=== PATIENT | male | born 1935 | race Caucasian/White ===

== ENCOUNTER → 2016-12-21 | Outpatient (CLI) | payer BC ==
[~2016-12-21] MED LIST: ASCO500T16 PO; ASPI81TA28 PO; MEMA1CAP7 PO; MULT-513 PO; SIMV20TA2 PO
[2016-12-22 08:54] LABS: URINE APPEARANCE CLOUDY (CLEAR); URINE BILIRUBIN NEG (NEG); URINE COLOR YELLOW; URINE EPITHELIAL CELL AUTO 20-30 /lpf (0-5); URINE NITRITE NEG (NEG); UROBILINOGEN NEG (NEG)
[2016-12-22 08:56] LABS: MANUAL MICROSCOPIC REQUIRED? NO; REVIEW REQ? YES
--- NOTE | 2016-12-25 05:40 | CODING QUERY NO DIAGNOSIS ---
TREATMENT RENDERED WITHOUT A DIAGNOSIS [employer], To promote full compliance with coding requirements relating to patient care, physician participation is requested in all cases of dock associate uncertainty. Please assist us with providing a diagnosis/symptom for the test(s) below: A diagnosis/symptom was not documented on your Order. A valid diagnosis/symptom is required to bill all insurances. Please remember that we are unable to code a diagnosis of rule out, probable, possible, questionable, or suspected. Tests that require a diagnosis: * URINE CULTURE DIAGNOSIS: * URINALYSIS WITH MICROSCOPY DIAGNOSIS: DATE OF SERVICE: 12/21/16 Provider Signature: Date: Thank you Dane Hodges [facility] Information Management Once completed, please kindly fax back to [phone] For questions please call [phone]
== END | disposition home or self-care (01) ==
LOC: C.LABSPEC 18:30
PROVIDERS: ATTEND Nurse Practitioner
DX: R50.9 Fever, unspecified (principal); R41.82 Altered mental status, unspecified; R63.8 Other symptoms and signs concerning food and fluid intake; R53.83 Other fatigue; F02.80 Dementia in other diseases classified elsewhere, unspecified severity, without behavioral disturbance, psychotic disturbance, mood disturbance, and anxiety; R47.01 Aphasia

== ENCOUNTER → 2017-08-19 | Outpatient (CLI) | payer BC ==
--- NOTE | 2017-08-19 17:16 | DIAGNOSTIC IMAGING REPORT ---
L-SPINE MIN 4 VIEWS ROUTINE CLINICAL HISTORY: M48.061 Lumbar canal [id number] Unsteady [id number] Urinary incontinence COMPARISON STUDY: MRI dated 05/14/2012 FINDINGS: There are bilateral total hip arthroplasties. Renal calcifications are likely vascular. There are moderately advanced multilevel degenerative changes present within the lumbar spine and lower thoracic spine. There is marked disc space narrowing at the L2-3 and L4-5 levels. There is a minimal grade 1 spondylolisthesis of L4 on L5. There are no acute fractures. IMPRESSION: Moderately advanced multilevel degenerative change. No acute fractures are visualized. Electronically signed by: Robert Longo M.D. 08/19/2017 5:15 PM Dictated Date/Time: 08/19/2017 5:13 PM
[2017-08-19 17:30] LABS: HEMATOCRIT 44.1 % (42-52); HEMOGLOBIN 15.2 g/dL (14.0-18.0); MEAN CELL VOLUME 90.9 fL (80-100); MEAN CORPUSCULAR HEMOGLOBIN 31.3 pg (25-34); MEAN CORPUSCULAR HGB CONC 34.5 g/dl (32-36); PLATELET COUNT 261 K/uL (130-400); RED CELL DISTRIBUTION WIDTH CV 13.4 % (11.5-14.5); RED CELL DISTRIBUTION WIDTH SD 44.1 fL (36.4-46.3); WHITE BLOOD COUNT 10.03 K/uL (4.8-10.8)
[2017-08-19 18:01] LABS: ALBUMIN 3.4 gm/dl (3.4-5.0); ALT/SGPT 50 U/L (12-78); AST/SGOT 37 U/L (15-37); BLOOD UREA NITROGEN 15 mg/dl (7-18); CALCIUM 8.9 mg/dl (8.5-10.1); CARBON DIOXIDE 26 mmol/L (21-32); CREATININE 1.01 mg/dl (0.60-1.40); GLUCOSE 97 mg/dl (70-99); POTASSIUM 4.4 mmol/L (3.5-5.1); SODIUM 138 mmol/L (136-145)
[2017-08-19 18:11] LABS: ALKALINE PHOSPHATASE 117 U/L (45-117); TOTAL PROTEIN 7.4 gm/dl (6.4-8.2)
== END | disposition home or self-care (01) ==
LOC: C.LAB1850 16:39
PROVIDERS: ATTEND Internal Medicine
DX: R41.82 Altered mental status, unspecified (principal); R32 Unspecified urinary incontinence; M48.061 Spinal stenosis, lumbar region without neurogenic claudication; R26.81 Unsteadiness on feet

== ENCOUNTER 2017-09-13 13:55 | Emergency (ER) | payer BC ==
[~2017-09-13] VITALS: Ht 177.8 cm; Wt 72.1 kg
[2017-09-13 14:05] VITALS: BP 99/66; PULSE 85; TEMP 37; O2SAT 97; Ht 177.8 cm; Wt 72.1 kg
== END 2017-09-13 15:29 | disposition left against medical advice (07) ==
LOC: C.EDB 13:59

== ENCOUNTER 2017-09-16 09:48 | Emergency (ER) | payer BC ==
[2017-09-16 09:58] VITALS: TEMP 36.4
[2017-09-16 10:27] VITALS: O2SAT 97
[2017-09-16] MEDS ORDERED: SODIUM CHLORIDE 0.9% 1000ML 500 ML IV STA (10:34)
[2017-09-16] MEDS ORDERED: SERT50TA PO (10:36)
--- NOTE | 2017-09-16 11:02 | DIAGNOSTIC IMAGING REPORT ---
CHEST ONE VIEW PORTABLE CLINICAL HISTORY: Altered mental status. Weakness. COMPARISON STUDY: September 2014 FINDINGS: The heart is at the upper limits of normal in size. There is mild basilar interstitial thickening of finding which is accentuated by suboptimal inspiration. There is no lobar consolidation. There are no pleural effusions. There are postsurgical changes in the cervical spine.[ IMPRESSION: Mild basilar interstitial thickening. No evidence of lobar consolidation Electronically signed by: Robert Longo M.D. 09/16/2017 11:01 AM Dictated Date/Time: 09/16/2017 11:00 AM
[2017-09-16 11:20] LABS: BASO % 0.1 %; BASO ABS # 0.01 K/uL (0-0.2); EOS % 1.7 %; EOS ABS # 0.13 K/uL (0-0.5); HEMATOCRIT 45.6 % (42-52); HEMOGLOBIN 15.6 g/dL (14.0-18.0); IG# 0.03 K/uL (0.00-0.02); LYMPH % 23.8 %; LYMPH ABS # 1.85 K/uL (1.2-3.4); MEAN CELL VOLUME 90.7 fL (80-100); MEAN CORPUSCULAR HGB CONC 34.2 g/dl (32-36); MEAN PLATELET VOLUME 9.8 fL (7.4-10.4); MONO % 7.8 %; MONO ABS # 0.61 K/uL (0.11-0.59); NEUT % 66.2 %; NEUT ABS # 5.15 K/uL (1.4-6.5); PLATELET COUNT 221 K/uL (130-400); RED CELL DISTRIBUTION WIDTH CV 13.5 % (11.5-14.5); RED CELL DISTRIBUTION WIDTH SD 44.4 fL (36.4-46.3); WHITE BLOOD COUNT 7.78 K/uL (4.8-10.8)
[2017-09-16 11:24] LABS: ALBUMIN 3.8 gm/dl (3.4-5.0); ALT/SGPT 51 U/L (12-78); AST/SGOT 39 U/L (15-37); BLOOD UREA NITROGEN 14 mg/dl (7-18); CARBON DIOXIDE 30 mmol/L (21-32); CREATININE 0.99 mg/dl (0.60-1.40); GLUCOSE 107 mg/dl (70-99); POTASSIUM 4.2 mmol/L (3.5-5.1); SODIUM 139 mmol/L (136-145)
--- NOTE | 2017-09-16 11:31 | DIAGNOSTIC IMAGING REPORT ---
CT HEAD WITHOUT CONTRAST (CT) CLINICAL HISTORY: Altered mental status. Weakness. COMPARISON STUDY: January 22, 2013 TECHNIQUE: Axial CT of the brain is performed from the vertex to the skull base. IV contrast was not administered for this examination. A dose lowering technique was utilized adhering to the principles of ALARA. CT DOSE: 537.48 mGy.cm FINDINGS: No intra or extra-axial mass lesions are visualized. There is no CT evidence of acute cortical infarction. There is no evidence of midline shift. There is no acute hemorrhage. No calvarial fractures are visualized. There are moderate white matter hypodensities likely on a small vessel basis. There are old bilateral lacunar infarcts. There is no evidence of pathologic ventricular dilatation. There is a trace left mastoid effusion. IMPRESSION: 1. 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 No acute intracranial findings Electronically signed by: Robert Longo M.D. 09/16/2017 11:30 AM Dictated Date/Time: 09/16/2017 11:28 AM
[2017-09-16 11:35] LABS: ALKALINE PHOSPHATASE 123 U/L (45-117); TOTAL PROTEIN 7.8 gm/dl (6.4-8.2)
[2017-09-16 12:37] VITALS: BP 125/65; PULSE 102; O2SAT 95
--- NOTE | 2017-09-16 15:29 | EMERGENCY ROOM VISIT NOTE ---
History Report prepared by Ezekiel: Denzel Vyas Under the Supervision of: Dr. Remigio Wakefield M.D. First contact with patient: 10:32 Chief Complaint: ALTERED MENTAL STATUS Stated Complaint: CHANGE IN MENTAL STATE, INCONTINENCE ISSUES Nursing Triage Summary: pt. lives at [facility], [place] [facility], past couple months pt. has been declining, went to Dr. Olson office couple weeks ago, pt. needs a ct scan to compare, was here saturday and was not seen due to increase agitation, past couple months pt. has lost interest in television and reading, lack of apathy, incontinent From May til Now more rapid decline vascular dementia for past several years, asphasia History of Present Illness The patient is a 82 year old male who presents to the Emergency Room with complaints of constant altered mental status beginning a few months ago. He lives at [facility]. History obtained per son. He states that the patient was seen by his PCP a few weeks ago for overall cognitive decline. He states that the patient has had an overall lack of interest, emotion, and memory. The patient's son states that the patient has been eating normally, but will go sleep as soon as he is done eating. He states that the patient's PCP recommended the patient have a head CT. He notes that the patient was started on Zoloft three months ago. The patient's son states that the patient has become incontinent of bowel and bladder recently as well. The patient has had no reported falls. HPI limited secondary to altered mental status. Source of History: family (son) History Limited By: AMS Onset: A few months ago Quality: other (altered mental status) Timing: constant Review of Systems ROS limited secondary to dementia. Past Medical & Surgical Medical Problems: (1) Anterior cervical discectomy (2) Arthritis (3) Cataract (4) Diabetes mellitus type 2 (5) Hyperlipidemia (6) Lipoma (7) Lumbar stenosis (8) Tonsillectomy (9) Total replacement of hip Family History No pertinent family history Social History Smoking Status: Former Smoker Alcohol Use: occasionally Marital Status: Housing Status: lives with family Occupation Status: retired Current/Historical Medications Scheduled Ascorbic Acid (Ascorbic Acid), 500 MG PO DAILY Aspirin (Aspirin Ec), 81 MG PO DAILY Memantine Hcl (Namenda Xr), 28 MG PO DAILY Multivitamins/Minerals (Mvi With Minerals), 1 TAB PO DAILY Sertraline (Zoloft), 50 MG PO DAILY Simvastatin (Zocor), 20 MG PO QPM Allergies Coded Allergies: No Known Allergies (Unverified , 06/24/14) Physical Exam Vital Signs Date Time Temp Pulse Resp B/P (MAP) Pulse Ox O2 Delivery O2 Flow Rate FiO2 09/16/17 12:37 102 19 125/65 95 Room Air 09/16/17 11:48 67 14 95 09/16/17 11:31 117/62 09/16/17 11:24 68 15 126/62 98 Room Air 09/16/17 11:19 126/62 09/16/17 11:18 68 23 09/16/17 10:48 74 14 09/16/17 10:27 97 Room Air 09/16/17 10:18 69 09/16/17 10:18 68 22 98 09/16/17 10:13 146/66 09/16/17 09:58 36.4 82 20 115/66 98 Room Air Physical Exam GENERAL: Patient is in no acute distress. HEENT: No acute trauma, normocephalic atraumatic, mucous membranes moist, no nasal congestion, no scleral icterus. NECK: No stridor, no adenopathy, no meningismus, trachea is midline. LUNGS: Clear to auscultation bilaterally, no wheeze, no rhonchi, breath sounds equal. HEART: Without murmurs gallops or rubs, regular rate and rhythm. ABDOMEN: Soft, nontender, bowel sounds positive, no hernias, no peritonitis. EXTREMITIES: No cyanosis or edema, full range of motion of all the joints without pain or difficulty, no signs for acute trauma. NEUROLOGIC: Awake. Does not answer questions. Does move all extremities. SKIN: No rash, no jaundice, no diaphoresis. Medical Decision & Procedures ER Provider Diagnostic Interpretation: Radiology results as stated below per my review and radiologist interpretation: CT HEAD WITHOUT CONTRAST (CT) FINDINGS: No intra or extra-axial mass lesions are visualized. There is no CT evidence of acute cortical infarction. There is no evidence of midline shift. There is no acute hemorrhage. No calvarial fractures are visualized. There are moderate white matter hypodensities likely on a small vessel basis. There are old bilateral lacunar infarcts. There is no evidence of pathologic ventricular dilatation. There is a trace left mastoid effusion. IMPRESSION: 1. 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 No acute intracranial findings Electronically signed by: Robert Longo M.D. 09/16/2017 11:30 AM CHEST ONE VIEW PORTABLE FINDINGS: The heart is at the upper limits of normal in size. There is mild basilar interstitial thickening of finding which is accentuated by suboptimal inspiration. There is no lobar consolidation. There are no pleural effusions. There are postsurgical changes in the cervical spine.[ IMPRESSION: Mild basilar interstitial thickening. No evidence of lobar consolidation Electronically signed by: Robert Longo M.D. 09/16/2017 11:01 AM Laboratory Results 09/16/17 10:50 Red Blood Count 5.03, Mean Corpuscular Volume 90.7, Mean Corpuscular Hemoglobin 31.0, Mean Corpuscular Hemoglobin Concent 34.2, Mean Platelet Volume 9.8, Neutrophils (%) (Auto) 66.2, Lymphocytes (%) (Auto) 23.8, Monocytes (%) (Auto) 7.8, Eosinophils (%) (Auto) 1.7, Basophils (%) (Auto) 0.1, Neutrophils # (Auto) 5.15, Lymphocytes # (Auto) 1.85, Monocytes # (Auto) 0.61, Eosinophils # (Auto) 0.13, Basophils # (Auto) 0.01 09/16/17 10:50 Test 09/16/17 10:50 09/16/17 11:45 White Blood Count 7.78 K/uL (4.8-10.8) Red Blood Count 5.03 M/uL (4.7-6.1) Hemoglobin 15.6 g/dL (14.0-18.0) Hematocrit 45.6 % (42-52) Mean Corpuscular Volume 90.7 fL (80-100) Mean Corpuscular Hemoglobin 31.0 pg (25-34) Mean Corpuscular Hemoglobin Concent 34.2 g/dl (32-36) Platelet Count 221 K/uL (130-400) Mean Platelet Volume 9.8 fL (7.4-10.4) Neutrophils (%) (Auto) 66.2 % Lymphocytes (%) (Auto) 23.8 % Monocytes (%) (Auto) 7.8 % Eosinophils (%) (Auto) 1.7 % Basophils (%) (Auto) 0.1 % Neutrophils # (Auto) 5.15 K/uL (1.4-6.5) Lymphocytes # (Auto) 1.85 K/uL (1.2-3.4) Monocytes # (Auto) 0.61 K/uL (0.11-0.59) Eosinophils # (Auto) 0.13 K/uL (0-0.5) Basophils # (Auto) 0.01 K/uL (0-0.2) RDW Standard Deviation 44.4 fL (36.4-46.3) RDW Coefficient of Variation 13.5 % (11.5-14.5) Immature Granulocyte % (Auto) 0.4 % Immature Granulocyte # (Auto) 0.03 K/uL (0.00-0.02) Anion Gap 4.0 mmol/L (3-11) Estimated GFR () 82.4 Estimated GFR (Non- 71.1 BUN/Creatinine Ratio 13.8 (10-20) Calcium Level 9.0 mg/dl (8.5-10.1) Magnesium Level 2.4 mg/dl (1.8-2.4) Total Bilirubin 0.6 mg/dl (0.2-1) Aspartate Amino Transf (AST/SGOT) 39 U/L (15-37) Alanine Aminotransferase (ALT/SGPT) 51 U/L (12-78) Alkaline Phosphatase 123 U/L (45-117) Troponin I < 0.015 ng/ml (0-0.045) Total Protein 7.8 gm/dl (6.4-8.2) Albumin 3.8 gm/dl (3.4-5.0) Globulin 4.0 gm/dl (2.5-4.0) Albumin/Globulin Ratio 1.0 (0.9-2) Thyroid Stimulating Hormone (TSH) 0.727 uIu/ml (0.300-4.500) Urine Color DK YELLOW Urine Appearance CLEAR (CLEAR) Urine pH 6.5 (4.5-7.5) Urine Specific [place] 1.024 (1.000-1.030) Urine Protein NEG (NEG) Urine Glucose (UA) NEG (NEG) Urine Ketones NEG (NEG) Urine Occult Blood NEG (NEG) Urine Nitrite NEG (NEG) Urine Bilirubin NEG (NEG) Urine Urobilinogen NEG (NEG) Urine Leukocyte Esterase NEG (NEG) Urine Opiates Screen NEG (NEG) Urine Methadone, Qualitative NEG (NEG) Urine Barbiturates NEG (NEG) Urine Phencyclidine (PCP) Level NEG (NEG) Ur Amphetamine/Methamphetamine NEG (NEG) MDMA (Ecstasy) Screen NEG (NEG) Urine Benzodiazepines Screen NEG (NEG) Urine Cocaine Metabolite NEG (NEG) Urine Marijuana (THC) NEG (NEG) Laboratory results reviewed by me. Medications Administered Medications (Trade) Dose Ordered Sig/Noman Route Start Time Stop Time Status Last Admin Dose Admin Sodium Chloride 500 ml @ 999 mls/hr Q31M STAT IV 09/16/17 10:34 09/16/17 11:04 DC 09/16/17 11:07 999 MLS/HR ECG Per My Interpretation Indication: altered mental status Rate (beats per minute): 67 Rhythm: normal sinus Findings: other (Poor R-wave progression. Baseline artifact. No obvious ST elevation. No PVCs. ) ED Course 1033: The patient was evaluated in room B7. A complete history and physical exam was performed. 1034: Ordered Sodium Chloride 500 ml @ 999 mls/hr IV. 1230: Reevaluated the patient. Discussed results and discharge instructions: his son verbalized understanding and agreement. The patient is ready for discharge. Medical Decision The patient is a 82 year old male who presents to the ED with complaints of altered mental status. Differential diagnoses considered include medication reaction, progressive dementia, ICH, stroke, infection, metabolic derangement, electrolyte imbalance, anemia, and UTI. There is no leukocytosis or concerning anemia. No significant electrolyte abnormality or kidney failure. There were a few scattered liver enzyme elevations. Urinalysis does not show infection. Chest x-ray does not show pneumonia or CHF. EKG shows a sinus rhythm, no acute ischemia. Brain CT shows no acute bleed or mass effect-chronic findings and older small strokes were noted. Cardiac enzyme testing 1 is not consistent with acute cardiac injury. The patient appeared to be in a euthyroid state. There were no focal neurologic deficits. The patient was not febrile or toxic. The patient presents with a worsening mental status over the last few months. Nothing found today appears acute. The patient was felt stable for discharge back to his primary care doctor. I did discuss maybe stopping the Zoloft as it has not helped and it may be is making things worse. Patient can be referred here and sent back of course if things worsen. The family was reassured. The patient was discharged. Medication Reconcilliation Current Medication List: was personally reviewed by me Blood Pressure Screening Patient's blood pressure: Normal blood pressure Blood pressure disposition: Did not require urgent referral Impression Primary Impression: Altered mental status Additional Impression: Dementia Scribe Attestation The scribe's documentation has been prepared under my direction and personally reviewed by me in its entirety. I confirm that the note above accurately reflects all work, treatment, procedures, and medical decision making performed by me. Departure Information Dispostion Home / Self-Care Referrals Campos Quigley M.D. (PCP) Forms HOME CARE DOCUMENTATION FORM, IMPORTANT VISIT INFORMATION Patient Instructions My [facility] Additional Instructions care as before consider stopping the Zoloft as discussed be sure to talk with your doctor today about the labs and imaging performed today Problem Qualifiers
== END 2017-09-16 12:48 | disposition home or self-care (01) ==
LOC: C.EDB 09:51
DX: R41.82 Altered mental status, unspecified (principal); F03.90 Unspecified dementia, unspecified severity, without behavioral disturbance, psychotic disturbance, mood disturbance, and anxiety; M19.90 Unspecified osteoarthritis, unspecified site; E11.9 Type 2 diabetes mellitus without complications; E78.5 Hyperlipidemia, unspecified; D17.9 Benign lipomatous neoplasm, unspecified; Z87.891 Personal history of nicotine dependence; Z79.82 Long term (current) use of aspirin